=== PATIENT | male | born 1950 | race Caucasian/White ===

== ENCOUNTER 2020-03-13 09:42 | Outpatient (REF) | payer OTHER, SELFPAY ==
[2020-03-13 11:08] LABS: MANUAL DIFF FLAG NO
[2020-03-13 11:30] LABS: Basophils Absolute Auto 0.1 X10*3/uL (0.0-0.2); Basophils Percent Auto 1.2 % (0-2); Eosinophils Absolute Auto 0.4 X10*3/uL (0.0-0.4); Eosinophils Percent Auto 6.5 % (0-4); Hematocrit 37.5 % (42-52); Hemoglobin 12.5 g/dl (14.0-18.0); Imm Gran Abs Auto 0.02 X10*3/uL (0.00-0.03); Imm Gran Pct Auto 0.3 % (0.0-0.4); Lymphocytes Absolute Auto 1.6 X10*3/uL (1.2-4.9); Lymphocytes Percent Auto 23.9 % (20-40); Mean Corpuscular HGB Conc 33.3 g/dl (31.0-36.0); Mean Corpuscular Hemoglobin 29.6 pg (27.0-33.0); Mean Corpuscular Volume 88.7 fL (80-98); Mean Platelet Volume 9.3 fL (9.4-12.4); Monocytes Absolute Auto 0.5 X10*3/uL (0.1-1.2); Monocytes Percent Auto 7.7 % (2-11); Neutrophils Absolute Auto 4.1 X10*3/uL (2.0-8.3); Neutrophils Percent Auto 60.4 % (45-73); Platelet Count 222 X10*3/uL (160-400); Red Blood Count 4.23 X10*6/uL (4.60-5.80); Red Cell Distribution Width 13.1 % (11.0-16.0); White Blood Count 6.8 X10*3/uL (4.8-10.8)
[2020-03-13 12:03] LABS: Alanine Aminotransferase 19 U/L (0-40); Albumin Level 4.2 g/dL (3.5-5.0); Alkaline Phosphatase 111 U/L (39-117); Anion Gap 8 (12-20); Aspartate Amino Transferase 16 U/L (5-37); Bilirubin Total 0.6 mg/dL (0.0-1.0); Blood Urea Nitrogen 30 mg/dL (9-16); Calcium 8.9 mg/dL (8.4-10.2); Carbon Dioxide 28 mmol/L (22-29); Chloride 105 mmol/L (96-108); Cholesterol 129 mg/dL; Estimated Glomerular Filt Rate 47; Glucose Fasting 90 mg/dL (60-99); HDL Cholesterol 43 mg/dL; LDL Cholesterol Calculated 69 mg/dl; Potassium 4.4 mmol/l (3.3-5.1); Sodium 137 mmol/L (135-145); Total Protein 6.8 g/dL (6.5-8.0); Triglycerides 89 mg/dL
== END 2020-03-13 09:43 | disposition home or self-care (01) ==
LOC: HO.HMGCLDS 09:42
PROVIDERS: PCP Internal Medicine; Visit Provider Internal Medicine
DX: E78.00 Pure hypercholesterolemia, unspecified (principal); F33.42 Major depressive disorder, recurrent, in full remission; I12.9 Hypertensive chronic kidney disease with stage 1 through stage 4 chronic kidney disease, or unspecified chronic kidney disease; N18.9 Chronic kidney disease, unspecified; Z00.00 Encounter for general adult medical examination without abnormal findings
CPT/HCPCS: 36415; 80053; 80061; 85025

== ENCOUNTER 2020-08-27 09:29 | Outpatient (REF) | payer OTHER, SELFPAY ==
[2020-08-27 11:29] LABS: MANUAL DIFF FLAG NO
[2020-08-27 11:38] LABS: Basophils Absolute Auto 0.1 X10*3/uL (0.0-0.2); Eosinophils Absolute Auto 0.5 X10*3/uL (0.0-0.4); Hematocrit 38.1 % (42-52); Hemoglobin 12.7 g/dl (14.0-18.0); Imm Gran Abs Auto 0.03 X10*3/uL (0.00-0.03); Imm Gran Pct Auto 0.4 % (0.0-0.4); Lymphocytes Percent Auto 26.2 % (20-40); Mean Corpuscular HGB Conc 33.3 g/dl (31.0-36.0); Mean Corpuscular Hemoglobin 29.7 pg (27.0-33.0); Mean Corpuscular Volume 89.2 fL (80-98); Mean Platelet Volume 9.3 fL (9.4-12.4); Monocytes Absolute Auto 0.6 X10*3/uL (0.1-1.2); Monocytes Percent Auto 7.7 % (2-11); Neutrophils Absolute Auto 4.6 X10*3/uL (2.0-8.3); Neutrophils Percent Auto 58.7 % (45-73); Platelet Count 221 X10*3/uL (160-400); Red Blood Count 4.27 X10*6/uL (4.60-5.80); Red Cell Distribution Width 13.1 % (11.0-16.0); White Blood Count 7.8 X10*3/uL (4.8-10.8)
[2020-08-27 12:00] LABS: Alanine Aminotransferase 16 U/L (0-40); Albumin Level 4.3 g/dL (3.5-5.0); Alkaline Phosphatase 130 U/L (39-117); Anion Gap 11 (12-20); Aspartate Amino Transferase 17 U/L (5-37); Bilirubin Total 0.8 mg/dL (0.0-1.0); Blood Urea Nitrogen 28 mg/dL (9-16); Calcium 9.3 mg/dL (8.4-10.2); Carbon Dioxide 26 mmol/L (22-29); Chloride 106 mmol/L (96-108); Cholesterol 129 mg/dL; Estimated Glomerular Filt Rate 41; Glucose Random 86 mg/dL (60-115); HDL Cholesterol 47 mg/dL; LDL Cholesterol Calculated 60 mg/dl; Potassium 4.3 mmol/L (3.3-5.1); Sodium 139 mmol/L (135-145); Triglycerides 113 mg/dL
== END 2020-08-27 09:30 | disposition home or self-care (01) ==
LOC: HO.HMGCLDS 09:29
PROVIDERS: PCP Internal Medicine; Visit Provider Internal Medicine
DX: I12.9 Hypertensive chronic kidney disease with stage 1 through stage 4 chronic kidney disease, or unspecified chronic kidney disease (principal); E78.00 Pure hypercholesterolemia, unspecified; F33.41 Major depressive disorder, recurrent, in partial remission; J45.909 Unspecified asthma, uncomplicated; N18.9 Chronic kidney disease, unspecified; D63.1 Anemia in chronic kidney disease
CPT/HCPCS: 36415; 80053; 80061; 85025

== ENCOUNTER 2021-05-02 10:16 | Outpatient (REF) | payer MEDICARE, SELFPAY ==
[2021-05-02 11:19] LABS: Hematocrit 37.3 % (42.0-52.0); Hemoglobin 12.6 g/dl (14.0-18.0); Mean Corpuscular HGB Conc 33.8 g/dl (31.0-36.0); Mean Corpuscular Hemoglobin 29.9 pg (27.0-33.0); Mean Corpuscular Volume 88.6 fL (80.0-98.0); Mean Platelet Volume 9.4 fL (9.4-12.4); Platelet Count 238 X10*3/uL (160-400); Red Blood Count 4.21 X10*6/uL (4.60-5.80); Red Cell Distribution Width 13.7 % (11.0-16.0); White Blood Count 6.5 X10*3/uL (4.8-10.8)
[2021-05-02 11:49] LABS: Alanine Aminotransferase 18 U/L (0-40); Albumin Level 4.2 g/dL (3.5-5.0); Alkaline Phosphatase 107 U/L (39-117); Anion Gap 10 (12-20); Aspartate Amino Transferase 17 U/L (5-37); Bilirubin Total 0.6 mg/dL (0.0-1.0); Blood Urea Nitrogen 26 mg/dL (9-16); Calcium 9.6 mg/dL (8.4-10.2); Carbon Dioxide 29 mmol/L (22-29); Chloride 106 mmol/L (96-108); Estimated Glomerular Filt Rate 46; Glucose Random 96 mg/dL (60-115); Iron 71 mcg/dL (45-160); Magnesium 2.2 mg/dL (1.6-2.6); Percent Iron Saturation 22 % (15-50); Potassium 4.5 mmol/L (3.3-5.1); Sodium 140 mmol/L (135-145); Total Iron Binding Capacity 319 mcg/dL (228-428); Unsaturated Iron Binding 248 ug/dL
[2021-05-02 12:00] LABS: Uric Acid 6.5 mg/dL (3.4-7.0)
[2021-05-02 12:03] LABS: Ferritin 123 ng/mL (20-250); Vitamin D 25-OH Total 12.4 ng/mL (>30)
[2021-05-02 14:18] LABS: Creatinine Urine 110.34 mg/dL; Protein/Creatinine Ratio, Ur 0.12 (<0.2); Total Protein Urine Random 13 mg/dL (<12)
== END 2021-05-02 10:17 | disposition home or self-care (01) ==
LOC: HO.HMGCLDS 10:16
PROVIDERS: PCP Internal Medicine; Visit Provider Internal Medicine Nephrology
DX: N17.9 Acute kidney failure, unspecified (principal); D63.1 Anemia in chronic kidney disease; R80.9 Proteinuria, unspecified
CPT/HCPCS: 36415; 80053; 82306; 82728; 83540; 83735; 84156; 84550; 85027

== ENCOUNTER 2021-07-12 07:46 | Outpatient (REF) | payer MEDICARE, SELFPAY ==
--- NOTE | ~2021-07-12 | XR_ITS ---
EXAMINATION: XR SHOULDER, RIGHT CLINICAL INFORMATION: Pain COMPARISON: None TECHNIQUE: Three views of the right shoulder. FINDINGS: Visualized portions of the proximal right humerus demonstrate no fracture. Humeral head demonstrates good articulation with the glenoid fossa. There are mild to moderate hypertrophic changes of the right acromioclavicular joint. Visualized right-sided ribs and lung parenchyma are unremarkable. XR/XR shoulder RT min 2V IMPRESSION: Mild degenerative changes of the right shoulder.
== END 2021-07-12 07:47 | disposition home or self-care (01) ==
LOC: HO.HOSX 07:46
PROVIDERS: Visit Provider Physician Assistant
DX: M75.101 Unspecified rotator cuff tear or rupture of right shoulder, not specified as traumatic (principal)
CPT/HCPCS: 20610; 73030; 99202; J1040

== ENCOUNTER 2021-08-14 18:00 | Outpatient (REF) | payer MEDICARE, SELFPAY ==
--- NOTE | ~2021-08-14 | MR_ITS ---
EXAMINATION: MR SHOULDER WITHOUT CONTRAST, RIGHT CLINICAL INFORMATION: Right shoulder pain. COMPARISON: X-ray of the right shoulder 07/12/2021. TECHNIQUE: MRI of the shoulder without contrast was performed on a high-field scanner. FINDINGS: ROTATOR CUFF: Supraspinatus: Scattered foci of increased signal throughout the supraspinatus tendon compatible with tendinosis and perhaps small foci of intrasubstance partial tearing but no measurable tendon defect or tendon retraction. The muscle is normal. The remaining rotator cuff muscles and tendons are normal. BICEPS: Normal. CORACOACROMIAL ARCH: The undersurface of the acromion is curved with no subacromial spur. Zyae-sk-idahkgkn hypertrophic osteoarthritis of the acromioclavicular joint manifested by marginal osteophytes, subchondral cystic change and edema Bursa: Minimal fluid signal compatible with normal variation or mild bursitis. LABRUM/CAPSULE: Normal. GLENOHUMERAL JOINT/MARROW: Normal. MR/MR shoulder RT wo con IMPRESSION: Mild abnormality the supraspinatus compatible with tendinosis and perhaps small scattered foci of intrasubstance partial tearing but no measurable defect or tendon retraction. Trace fluid in the subacromial-subdeltoid bursa compatible with normal variation or mild bursitis. Qyel-te-bheodlpt hypertrophic osteoarthritis of the acromioclavicular joint.
== END 2021-08-14 18:01 | disposition home or self-care (01) ==
LOC: HO.MRI 18:00
PROVIDERS: Visit Provider Physician Assistant
DX: M75.101 Unspecified rotator cuff tear or rupture of right shoulder, not specified as traumatic (principal)
CPT/HCPCS: 73221

== ENCOUNTER → 2021-08-23 13:15 | Outpatient (BNVA) | payer MEDICARE, SELFPAY | PROVIDERS: PCP Internal Medicine; Visit Provider Physician Assistant | DX: M75.101 Unspecified rotator cuff tear or rupture of right shoulder, not specified as traumatic (principal) | CPT/HCPCS: 99212 ==

== ENCOUNTER 2021-10-10 09:17 | Outpatient (REF) | payer MEDICARE, SELFPAY ==
[2021-10-10 11:08] LABS: MANUAL DIFF FLAG NO
[2021-10-10 11:11] LABS: Basophils Absolute Auto 0.1 X10*3/uL (0.0-0.2); Basophils Percent Auto 0.9 % (0-2); Eosinophils Absolute Auto 0.4 X10*3/uL (0.0-0.4); Eosinophils Percent Auto 4.7 % (0-4); Hematocrit 37.2 % (42.0-52.0); Hemoglobin 12.6 g/dl (14.0-18.0); Imm Gran Abs Auto 0.04 X10*3/uL (0.00-0.03); Imm Gran Pct Auto 0.5 % (0.0-0.4); Lymphocytes Absolute Auto 1.6 X10*3/uL (1.2-4.9); Lymphocytes Percent Auto 21.2 % (20-40); Mean Corpuscular HGB Conc 33.9 g/dl (31.0-36.0); Mean Corpuscular Hemoglobin 30.1 pg (27.0-33.0); Mean Platelet Volume 9.1 fL (9.4-12.4); Monocytes Absolute Auto 0.5 X10*3/uL (0.1-1.2); Monocytes Percent Auto 6.7 % (2-11); Neutrophils Absolute Auto 4.9 x10*3/uL (2.0-8.3); Platelet Count 229 X10*3/uL (160-400); Red Blood Count 4.18 X10*6/uL (4.60-5.80); Red Cell Distribution Width 13.1 % (11.0-16.0); White Blood Count 7.4 X10*3/uL (4.8-10.8)
[2021-10-10 11:21] LABS: Alanine Aminotransferase 17 U/L (0-40); Albumin Level 4.4 g/dL (3.5-5.0); Alkaline Phosphatase 113 U/L (39-117); Anion Gap 11 (12-20); Aspartate Amino Transferase 16 U/L (5-37); Bilirubin Total 0.5 mg/dL (0.0-1.0); Blood Urea Nitrogen 29 mg/dL (9-16); Calcium 9.3 mg/dL (8.4-10.2); Carbon Dioxide 24 mmol/L (22-29); Chloride 108 mmol/L (96-108); Cholesterol 119 mg/dL; Estimated Glomerular Filt Rate 44; Glucose Random 105 mg/dL (60-115); HDL Cholesterol 40 mg/dL; LDL Cholesterol Calculated 50 mg/dl; Potassium 4.7 mmol/L (3.3-5.1); Sodium 138 mmol/L (135-145); Total Protein 7.2 g/dL (6.5-8.0); Triglycerides 148 mg/dL
[2021-10-10 11:46] LABS: Prostate Specific Antigen 0.74 ng/mL (<0.05-4.0)
== END 2021-10-10 09:18 | disposition home or self-care (01) ==
LOC: HO.HMGCLDS 09:17
PROVIDERS: Visit Provider Internal Medicine
DX: Z00.00 Encounter for general adult medical examination without abnormal findings (principal); Z12.5 Encounter for screening for malignant neoplasm of prostate; N40.0 Benign prostatic hyperplasia without lower urinary tract symptoms; I12.9 Hypertensive chronic kidney disease with stage 1 through stage 4 chronic kidney disease, or unspecified chronic kidney disease; N18.9 Chronic kidney disease, unspecified; F32.5 Major depressive disorder, single episode, in full remission
CPT/HCPCS: 36415; 80053; 80061; 84153; 85025

== ENCOUNTER 2021-10-22 13:00 | Outpatient (RCR) | payer MEDICARE, SELFPAY ==
--- NOTE | 2021-09-20 09:13 | MHC.PT.EP ---
[facility] [place] [facility] [place] [facility] [place] [facility] [address] Loco Garcia [address] [phone] F: [phone] F: [phone] F: [phone] F: [phone] Physical Therapy Plan of Care Date of Evaluation: Date of Surgery: Diagnosis: Painful Arc of R shoulder. Assessment: Pt is a 71 y/o R hand dominant male referred to PT for eval and treat of R shoulder painful arc who presents with R shoulder dysfunction resulting in decreased tolerance and ability to perform reaching a high shelf, dressing pullovers, reaching his neck and back for hygiene/ dressing and carrying objects of weight secondary to decreased R UE strength and ROM, TTP of his anterior R shoulder and pain. Pt is deemed an appropriate candidate to receive skilled PT in order to address his physical limitations to improve his functional ability. Frequency and Duration: The patient will be seen 2 x / wk x 5 wks. Short Term Goals: Initiate HEP Pt will report baseline pain at rest < 4/10; initial: 6/10. Assisted Goals: I with HEP. Pt will be able to place objects on high shelf with managed Sx; initial: 7/10 pain; 9/10 difficulty. Pt will improve R shoulder IR MMT by at least 1/2 MMT grade; initial: 4-/5 and painful. pt will be able to dress pullovers with managed Sx; initial: 7/10. Treatment Plan: Modalities to reduce pain, spasms and effusion. Manual therapy to restore motion and function. Therapeutic exercise to improve strength and flexibility. Neuromuscular re-education for posture and balance. Therapeutic activities to return to functional activities of daily living. Electronically signed by: Yakov Ureña PT. Please sign and return to therapist. Thank you for your referral.
--- NOTE | 2022-04-16 08:13 | MHC.PT.DC ---
[facility] [place] Office [place] Office [place] Office [address] Loco Garcia [address] [phone] F: [phone] F: [phone] F: [phone] F: [phone] Physical Therapy Discharge Report Diagnosis: Painful Arc of R shoulder. Date of Surgery: Date of Evaluation: 09/19/21 Date of Discharge: 11/22/21 Treatments to Date: 5 Cancellations to Date: No Shows to Date: Discharge Status: Patient Elected to Stop Discharge Summary: Pt elected to pause therapy and chart was held 30 days though Pt did not follow up with therapy. Electronically signed by: Yakov Ureña PT. Please sign and return to therapist. Thank you for your referral.
== END 2022-04-16 08:12 | disposition home or self-care (01) ==
LOC: HO.PTCHIC 13:00
PROVIDERS: Visit Provider Physician Assistant
DX: M75.101 Unspecified rotator cuff tear or rupture of right shoulder, not specified as traumatic (principal)
CPT/HCPCS: 97014; 97110; 97140; 97161

== ENCOUNTER → 2021-12-17 13:04 | Outpatient (BNVA) | payer MEDICARE, SELFPAY | PROVIDERS: PCP Internal Medicine; Visit Provider Nurse Practitioner Family | DX: G47.52 REM sleep behavior disorder (principal); R40.0 Somnolence; R26.9 Unspecified abnormalities of gait and mobility | CPT/HCPCS: 99202 ==

== ENCOUNTER → 2022-01-08 19:30 | Outpatient (REF) | payer MEDICARE, SELFPAY | LOC: HO.SL 19:30 | PROVIDERS: Visit Provider Nurse Practitioner Family | DX: G47.52 REM sleep behavior disorder (principal) | CPT/HCPCS: 95810 ==

== ENCOUNTER 2022-01-23 09:30 | Outpatient (REF) | payer MEDICARE, SELFPAY ==
--- NOTE | ~2022-01-23 | MR_ITS ---
EXAMINATION: MR BRAIN WITHOUT CONTRAST CLINICAL INFORMATION: Unspecified abnormalities of gait and mobility. COMPARISON: None available. TECHNIQUE: Multiplanar, multisequence imaging of the brain was performed without intravenous contrast. FINDINGS: There is no acute infarction, mass, hemorrhage, or extra-axial collection. The ventricles, sulci, and basilar cisterns are normal in size and configuration. A few mild nonspecific foci of T2/FLAIR hyperintensity are seen throughout the bilateral cerebral white matter. The flow voids of the major intracranial arteries appear intact. Mild degenerative changes are noted in the upper cervical spine. The bones and extracranial soft tissues are unremarkable. MR/MR head/brain wo con IMPRESSION: No acute infarct, mass lesion, intracranial hemorrhage, or evidence of hydrocephalus.
== END 2022-01-23 09:31 | disposition home or self-care (01) ==
LOC: HO.MRI 09:30
PROVIDERS: Visit Provider Nurse Practitioner Family
DX: R26.9 Unspecified abnormalities of gait and mobility (principal)
CPT/HCPCS: 70551

== ENCOUNTER 2022-04-29 09:18 | Outpatient (REF) | payer MEDICARE, SELFPAY ==
[2022-04-29 11:29] LABS: MANUAL DIFF FLAG NO
[2022-04-29 11:37] LABS: Basophils Absolute Auto 0.1 X10*3/uL (0.0-0.2); Basophils Percent Auto 1.7 % (0-2); Eosinophils Absolute Auto 0.4 X10*3/uL (0.0-0.4); Eosinophils Percent Auto 6.8 % (0-4); Hematocrit 40.4 % (42.0-52.0); Hemoglobin 13.4 g/dl (14.0-18.0); Imm Gran Abs Auto 0.03 X10*3/uL (0.00-0.03); Imm Gran Pct Auto 0.5 % (0.0-0.4); Lymphocytes Absolute Auto 1.4 X10*3/uL (1.2-4.9); Lymphocytes Percent Auto 22.2 % (20-40); Mean Corpuscular HGB Conc 33.2 g/dl (31.0-36.0); Mean Corpuscular Hemoglobin 28.8 pg (27.0-33.0); Mean Corpuscular Volume 86.9 fL (80.0-98.0); Mean Platelet Volume 9.1 fL (9.4-12.4); Monocytes Absolute Auto 0.5 X10*3/uL (0.1-1.2); Neutrophils Absolute Auto 3.9 x10*3/uL (2.0-8.3); Neutrophils Percent Auto 60.8 % (45-73); Platelet Count 226 X10*3/uL (160-400); Red Blood Count 4.65 X10*6/uL (4.60-5.80); Red Cell Distribution Width 13.3 % (11.0-16.0); White Blood Count 6.5 X10*3/uL (4.8-10.8)
[2022-04-29 12:12] LABS: Alanine Aminotransferase 15 U/L (0-40); Albumin Level 4.2 g/dL (3.5-5.0); Alkaline Phosphatase 120 U/L (39-117); Anion Gap 13 (12-20); Aspartate Amino Transferase 16 U/L (5-37); Bilirubin Total 0.7 mg/dL (0.0-1.0); Blood Urea Nitrogen 24 mg/dL (9-16); Calcium 9.4 mg/dL (8.4-10.2); Carbon Dioxide 24 mmol/L (22-29); Chloride 107 mmol/L (96-108); Estimated Glomerular Filt Rate 44; Glucose Random 107 mg/dL (60-115); Potassium 4.3 mmol/L (3.3-5.1); Sodium 140 mmol/L (135-145); Total Protein 6.8 g/dL (6.5-8.0)
== END 2022-04-29 09:19 | disposition home or self-care (01) ==
LOC: HO.HMGCLDS 09:18
PROVIDERS: PCP Internal Medicine; Visit Provider Internal Medicine
DX: E78.00 Pure hypercholesterolemia, unspecified (principal); F32.5 Major depressive disorder, single episode, in full remission; I12.9 Hypertensive chronic kidney disease with stage 1 through stage 4 chronic kidney disease, or unspecified chronic kidney disease; J45.909 Unspecified asthma, uncomplicated; N18.9 Chronic kidney disease, unspecified
CPT/HCPCS: 36415; 80053; 85025

== ENCOUNTER 2022-11-14 06:36 | Outpatient (REF) | payer MEDICARE, SELFPAY ==
[2022-11-14 11:07] LABS: MANUAL DIFF FLAG NO
[2022-11-14 11:28] LABS: Basophils Absolute Auto 0.1 X10*3/uL (0.0-0.2); Basophils Percent Auto 1.2 % (0-2); Eosinophils Absolute Auto 0.4 X10*3/uL (0.0-0.4); Eosinophils Percent Auto 5.6 % (0-4); Hematocrit 40.1 % (42.0-52.0); Hemoglobin 13.1 g/dl (14.0-18.0); Imm Gran Abs Auto 0.03 X10*3/uL (0.00-0.03); Imm Gran Pct Auto 0.4 % (0.0-0.4); Lymphocytes Absolute Auto 2.1 X10*3/uL (1.2-4.9); Lymphocytes Percent Auto 30.5 % (20-40); Mean Corpuscular HGB Conc 32.7 g/dl (31.0-36.0); Mean Corpuscular Hemoglobin 29.4 pg (27.0-33.0); Mean Corpuscular Volume 89.9 fL (80.0-98.0); Mean Platelet Volume 9.4 fL (9.4-12.4); Monocytes Absolute Auto 0.5 X10*3/uL (0.1-1.2); Monocytes Percent Auto 7.8 % (2-11); Neutrophils Absolute Auto 3.7 x10*3/uL (2.0-8.3); Neutrophils Percent Auto 54.5 % (45-73); Platelet Count 222 X10*3/uL (160-400); Red Blood Count 4.46 X10*6/uL (4.60-5.80); Red Cell Distribution Width 13.3 % (11.0-16.0); White Blood Count 6.8 X10*3/uL (4.8-10.8)
[2022-11-14 13:00] LABS: Alanine Aminotransferase 15 U/L (0-40); Albumin Level 4.2 g/dL (3.5-5.0); Alkaline Phosphatase 98 U/L (39-117); Anion Gap 11 (12-20); Aspartate Amino Transferase 17 U/L (5-37); Bilirubin Total 0.6 mg/dL (0.0-1.0); Blood Urea Nitrogen 21 mg/dL (9-16); Calcium 9.8 mg/dL (8.4-10.2); Carbon Dioxide 25 mmol/L (22-29); Chloride 108 mmol/L (96-108); Cholesterol 147 mg/dL (<200); Estimated Glomerular Filt Rate 45; Glucose Random 110 mg/dL (60-115); HDL Cholesterol 43 mg/dL (>40); LDL Cholesterol Calculated 85 mg/dL (<100); Potassium 4.4 mmol/L (3.3-5.1); Sodium 140 mmol/L (135-145); Total Protein 7.3 g/dL (6.5-8.0); Triglycerides 95 mg/dL (<150)
== END 2022-11-14 06:37 | disposition home or self-care (01) ==
LOC: HO.HMGCLDS 06:36
PROVIDERS: PCP Internal Medicine; Visit Provider Internal Medicine
DX: Z00.00 Encounter for general adult medical examination without abnormal findings (principal); I12.9 Hypertensive chronic kidney disease with stage 1 through stage 4 chronic kidney disease, or unspecified chronic kidney disease; N18.9 Chronic kidney disease, unspecified; F32.5 Major depressive disorder, single episode, in full remission; G47.52 REM sleep behavior disorder
CPT/HCPCS: 36415; 80053; 80061; 85025

== ENCOUNTER 2023-06-10 09:28 | Outpatient (REF) | payer MEDICARE, SELFPAY ==
[2023-06-10 19:12] LABS: Urine Cytology See Pathology rpt
== END 2023-06-10 09:29 | disposition home or self-care (01) ==
LOC: HO.LAB 09:28
PROVIDERS: PCP Internal Medicine; Visit Provider Nurse Practitioner Family
DX: R31.29 Other microscopic hematuria (principal)
CPT/HCPCS: 51798; 81003; 88112; 99202

== ENCOUNTER 2023-06-10 09:28 | Outpatient (AMB) | payer MEDICARE, SELFPAY ==
--- NOTE | 2023-06-10 09:34 | A.OFFVIS_ITS ---
Intake Intake Visit Reasons: BPH with LUTS Intake Note: Patient presents today for a follow-up on BPH with LUTS Meds- None Allergies to Antibiotic- No Known Allergies Blood Thinner- None Post Void Residual: 18ml Licensed Land Surveyor Required: No Accompanied by: Self / Same As Patient Allergies codeine [CODEINE] Allergy (Unknown, Verified 06/10/23 10:18) UNKNOWN Codeine Allergy (Unknown, Uncoded 06/10/23 10:18) Nausea codeine Allergy (Unknown, Uncoded 06/10/23 10:18) stomach upset seasonal Allergy (Unknown, Uncoded 06/10/23 10:18) Abdominal Pain Medication List - Last Reconciled 06/10/23 by COURTNEY Rdz-MATEO atorvastatin 40 mg PO BEDTIME fluoxetine 40 mg PO DAILY montelukast 10 mg PO DAILY nifedipine ER 30 mg PO DAILY tamsulosin 0.4 mg PO BEDTIME 30 days HPI HPI Comments History of Present Illness Details Luis is a very pleasant 72-year-old male patient of Dr. Montemayor. He has a past medical history of asthma, hypertension, and hyperlipidemia. He presents to the office today as a new patient for ongoing lower urinary tract symptoms. In discussion with the patient today he reports noting urinary frequency, nocturia, and weak urinary stream. He reports the symptoms have been present for a few years now however feels they are worsening. He otherwise denies incontinence, hematuria, dysuria, foul smelling urine, flank pain, fever, and or chills. In office urinalysis results reviewed with the patient today. Microscopic hematuria noted. PVR 18 mL. In review of patient's chart it appears PSA 10/11--0.7. Discussed at length potential causes for lower urinary tract symptoms patient is experiencing as well as microscopic hematuria. When asked he denies any previous known workplace chemical exposure and or smoking history. When asked he denies any signs or symptoms of sleep apnea. He otherwise denies any bothersome urinary issues or concerns. [facility] Medical History Asthma High cholesterol High blood pressure Social History Current occupational status: employed Current occupation: shuttle van driver/ rt hand Review of Systems Const All systems reviewed & are unremarkable except as noted in HPI and below Physical Exam Const General: cooperative, healthy appearing, comfortable, no acute distress, well developed, alert and awake Orientation/consciousness: patient oriented x3 Limitations: no limitations HEENT Head: Yes normal to inspection, Yes normocephalic and Yes atraumatic Ears: hearing grossly normal bilaterally Eyes General: appearance normal, both eyes and all related structures Neck Neck: Yes normal visual inspection and Yes trachea midline Chest Chest palpation & inspection: normal inspection of the chest Resp Effort & Inspection: normal respiratory effort and able to speak in complete sentences Cardio Rate: regular rate GI Inspection: Yes normal to inspection General: Yes no CVA tenderness Back/Spine/Pelvis Back: no CVA tenderness Skin General skin exam: no rashes or lesions noted Neuro General: patient oriented x3 Extrem General: Yes normal to inspection Psych Appearance: grossly normal and well kempt Mental Status: mental status grossly normal Speech and movement: Normal speech and movement present and Clear speech present Affect: normal affect Attitude: cooperative Thought process: Normal thought process present Thought content: Normal thought content present Insight: Fair insight present (Psych) Judgement: Fair judgement present (Psych) Office Procedures Post Void Residual Post Residual Void Post Void Residual (PVR): 18 [id number] Void Residual by ultrasound Results AMB Urinalysis, Automated UA Leukoctes 0 Susana/uL Last Edit by Tabby Hall CMA on 06/10/23 09 :50 UA Nitrite Negative Last Edit by Tabby Hall CMA on 06/10/23 09: 50 UA Urobilinogen 0.2 mg/dL Last Edit by Tabby Hall CMA on 4 09:50 UA Protein 30 mg/dL Last Edit by Tabby Hall CMA on 06/10/23 09:5 0 UA pH 6.0 Last Edit by Tabby Hall CMA on 06/10/23 09:50 UA Blood 10 Deshaun/uL Last Edit by Tabby Hall CMA on 06/10/23 09:50 UA Specific Melrose 1.015 Last Edit by Tabby Hall CMA on 09:50 UA Ketone Negative Last Edit by Tabby Hall CMA on 06/10/23 09:5 0 UA Bilirubin 0 mg/dL Last Edit by Tabby Hall CMA on 06/10/23 09: 50 UA Glucose 0 mg/dL Last Edit by Tabby Hall CMA on 06/10/23 09:50 Results Reviewed Results Reviewed: Laboratory Last Values Urine pH (Auto) 6.0 06/10/23 09:35 Specific Melrose (Auto) 1.015 06/10/23 09:35 Urine Protein (Auto) 30 mg/dL 06/10/23 09:35 Glucose (UA)(Auto) 0 mg/dL 06/10/23 09:35 Urine Ketones (Auto) Negative 06/10/23 09:35 Urine Blood (Auto) 10 Deshaun/uL 06/10/23 09:35 Urine Nitrite (Auto) Negative 06/10/23 09:35 Urine Bilirubin (Auto) 0 mg/dL 06/10/23 09:35 Urine Urobilinogen (Auto) 0.2 mg/dL 06/10/23 09:35 Leukocyte Esterase (Auto) 0 Susana/uL 06/10/23 09:35 Assessment & Plan Assessment & Plan (1) Weak urinary stream: Code(s): R39.12 - Poor urinary stream (2) Nocturia: Code(s): R35.1 - Nocturia (3) Urinary frequency: Code(s): R35.0 - Frequency of micturition Plan In office urinalysis results reviewed with the patient today; as noted above; will send for urine cytology. PVR 18 mL. Discussed at length potential causes of lower urinary tract symptoms patient is experiencing as well as microscopic hematuria. Discussed obtaining retroperitoneal ultrasound for further assessment evaluation. Will obain PSA for further assessment and evaluation. Discussed bladder triggers/irritants. Discussed further microscopic hematuria versus surveillance monitoring; risks and benefits of these treatment options were discussed at length. Discussed possible near future in office cystoscopy for further assessment evaluation. Start Flomax as discussed and prescribed. Follow-up in 2-3 months with imaging, PSA, and PVR; or sooner with any issues, concerns, and or questions. Orders: Orders AMB Urinalysis Automated Today R33.9 - Retention of urine, unspecified AMB Post Void Residual by ultrasound Today R33.9 - Retention of urine, unspecified Urine Cytology Today R31.29 - Other microscopic hematuria US retroperitoneal comp Today R35.0 - Frequency of micturition, R35.1 - Nocturia, R39.12 - Poor urinary stream Prostate Specific Antigen Today R35.0 - Frequency of micturition, R35.1 - Nocturia, R39.12 - Poor urinary stream Medications: New tamsulosin 0.4 mg PO BEDTIME 30 caps 3RF 30 days N40.1 - Benign prostatic hyperplasia with lower urinary tract symptoms, R35.1 - Nocturia Patient Instructions: The patient had an opportunity to ask questions regarding the treatment plan. All questions were answered. Physical exam, labs, and imaging were discussed and reviewed in detail. As well as risks, benefits, and discussion of treatment choices. No major barriers to understanding were identified. The patient expressed understanding and agreement with the above treatment plan. The patient was made aware they should contact our office by phone for worsening of their current condition, the appearance of new symptoms, or with any questions or concerns. Compliance is encouraged with any medications and follow up testing that is ordered. It is a privilege to be allowed the opportunity to participate in? your urological care.? Again, if you have any questions or concerns If you have any questions or concerns please do not hesitate to contact me. The office is [phone]. This note is constructed using voice recognition software. While every effort has been made to ensure accuracy info print press operator errors may have been included. Yours sincerely, ROSANGELA Rdz Coding Level of Care Code New Pt Level 4 (95412) Diagnoses Weak urinary stream R39.12 Nocturia R35.1 Urinary frequency R35.0 CPT Codes Post Residual Void - PVR CPT Code: 42243-Vmzl Void Residual by ultrasound ([id number])
== END 2023-06-10 10:11 | disposition home or self-care (01) ==
PROVIDERS: PCP Internal Medicine; Visit Provider Nurse Practitioner Family
DX: R39.12 Poor urinary stream (principal); R35.1 Nocturia; R35.0 Frequency of micturition; R33.9 Retention of urine, unspecified
CPT/HCPCS: 99204

== ENCOUNTER 2023-11-20 06:01 | Outpatient (REF) | payer MEDICARE, SELFPAY ==
[2023-11-20 10:05] LABS: MANUAL DIFF FLAG NO
[2023-11-20 10:09] LABS: Basophils Absolute Auto 0.1 X10*3/uL (0.0-0.2); Basophils Percent Auto 1.2 % (0-2); Eosinophils Absolute Auto 0.4 X10*3/uL (0.0-0.4); Eosinophils Percent Auto 5.7 % (0-4); Hematocrit 39.5 % (42.0-52.0); Hemoglobin 13.3 g/dl (14.0-18.0); Imm Gran Abs Auto 0.02 X10*3/uL (0.00-0.03); Imm Gran Pct Auto 0.3 % (0.0-0.4); Lymphocytes Absolute Auto 2.3 X10*3/uL (1.2-4.9); Lymphocytes Percent Auto 29.5 % (20-40); Mean Corpuscular HGB Conc 33.7 g/dl (31.0-36.0); Mean Corpuscular Hemoglobin 29.6 pg (27.0-33.0); Mean Platelet Volume 9.3 fL (9.4-12.4); Monocytes Absolute Auto 0.6 X10*3/uL (0.1-1.2); Monocytes Percent Auto 7.9 % (2-11); Neutrophils Absolute Auto 4.3 x10*3/uL (2.0-8.3); Neutrophils Percent Auto 55.4 % (45-73); Platelet Count 236 X10*3/uL (160-400); Red Blood Count 4.49 X10*6/uL (4.60-5.80); Red Cell Distribution Width 13.5 % (11.0-16.0); White Blood Count 7.8 X10*3/uL (4.8-10.8)
[2023-11-20 10:47] LABS: Alanine Aminotransferase 16 U/L (0-40); Albumin Level 4.3 g/dL (3.5-5.0); Alkaline Phosphatase 118 U/L (39-117); Anion Gap 8 (12-20); Aspartate Amino Transferase 16 U/L (5-37); Bilirubin Total 0.8 mg/dL (0.0-1.0); Blood Urea Nitrogen 24 mg/dL (9-16); Calcium 9.9 mg/dL (8.4-10.2); Carbon Dioxide 28 mmol/L (22-29); Chloride 107 mmol/L (96-108); Cholesterol 133 mg/dL (<200); Estimated Glomerular Filt Rate 43; Glucose Random 99 mg/dL (60-115); HDL Cholesterol 43 mg/dL (>40); LDL Cholesterol Calculated 70 mg/dL (<100); Potassium 4.2 mmol/L (3.3-5.1); Sodium 139 mmol/L (135-145); Total Protein 7.2 g/dL (6.5-8.0); Triglycerides 102 mg/dL (<150)
== END 2023-11-20 06:02 | disposition home or self-care (01) ==
LOC: HO.HMGCLDS 06:01
PROVIDERS: PCP Internal Medicine; Visit Provider Internal Medicine
DX: Z00.00 Encounter for general adult medical examination without abnormal findings (principal); I12.9 Hypertensive chronic kidney disease with stage 1 through stage 4 chronic kidney disease, or unspecified chronic kidney disease; G47.52 REM sleep behavior disorder; F32.5 Major depressive disorder, single episode, in full remission; N18.9 Chronic kidney disease, unspecified
CPT/HCPCS: 36415; 80053; 80061; 85025

== ENCOUNTER 2025-03-18 07:44 | Outpatient (REF) | payer MEDICARE, SELFPAY ==
--- OUTSIDE RECORDS SUMMARY | 2025-03-18 07:47 | XMS_ITS | Clinical Summary ---
Author Organization [facility] Address [address] [facility] [address] [place] [address] Phone Care Team Providers Care Racker Octave Board Name Role Phone Norma Montemayor MD Primary Care Provider [phone] Allergies Active Allergy Reactions Criticality Noted Date Comments Amlodipine Other (see comments) 03/19/2021 Duloxetine Hcl Other (see comments) 03/19/2021 Gabapentin Other (see comments) 03/19/2021 Medications albuterol HFA (PROVENTIL HFA;VENTOLIN HFA) 108 (90 Base) MCG/ACT inhaler Inhale 2 puffs Active atorvastatin (LIPITOR) 40 MG tablet Take 1 tablet by mouth 1 (one) time each day Active FLUoxetine (PROzac) 40 MG capsule Take 1 capsule by mouth 1 (one) time each day Active lisinopril 20 MG tablet Take 1 tablet by mouth 2 (two) times a day 04/27/2019 Active montelukast (SINGULAIR) 10 MG tablet Take 1 tablet by mouth 1 (one) time each day Active NIFEdipine CC (ADALAT CC) 30 MG 24 hr tablet Take 1 tablet by mouth 1 (one) time each day in the evening 05/17/2019 Active Sodium Hyaluronate, oral, (HYALURONIC ACID PO) Take by mouth Active Active Problems Problem Noted Date Diagnosed Date Stage 3a chronic kidney disease 03/19/2021 Essential hypertension 03/19/2021 Gastroesophageal reflux disease Dyslipidemia Family History Medical History Relation Comments Cancer Child Non- Hodgkins Ly mphoma Cancer Father Lung Dementia Mother Heart disease Mother Pacemaker Kidney disease Sibling Relation Status Comments Child Father Mother Sibling Social History Tobacco Use Types Packs/Day Years Used Date Smoking Tobacco: Never Smokeless Tobacco: Never Tobacco Cessation:Counseling Given: No Alcohol Use Standard Drinks/Week Comments No 0 (1 standard drink = 0.6 oz pur e alcohol) Sex and Gender Information Value Date Recorded Sex Assigned at Not on file Legal Sex Male 4:54 PM EST Gender Identity Not on file Sexual Orientation Not on file Last Filed Vital Signs Vital Sign Reading Time Taken Comments Blood Pressure 124/84 05/09/2021 9:49 AM EST Pulse 69 05/09/2021 9:49 AM EST Temperature - - Respiratory Rate - - Oxygen Saturation 98% 05/09/2021 9:49 AM EST Inhaled Oxygen Concentration - - Weight 82.8 kg (182 lb 9.6 oz) 05/09/2021 9:49 A M EST Height 168.9 cm (5' 6.5 ) 05/17/2019 12:00 PM ES T Body Mass Index 29.03 05/17/2019 12:00 PM EST Plan of Treatment Health Maintenance Due Date Last Done Comments Pneumococcal Vaccine: 50+ Ye ars (1 of 2 - PCV) 08/24/1970 Colorectal Cancer Screening: Annual FOBT 08/24/2000 Colorectal Cancer Screening: Colonoscopy 08/24/2000 Colorectal Cancer Screening: Sigmoidoscopy 08/24/2000 Influenza Vaccine (#1) 2024 Hepatitis B Vaccine Aged Out No longe r eligible based on patient's age to complete this topic Insurance [id number] Medicare [facility] Medicare Care Teams Racker Octave Board Relationship Specialty Start Date End Date Norma Montemayor MD [address] PCP - General 04/02/20
[2025-03-18 08:24] LABS: Alanine Aminotransferase 26 U/L (0-40); Albumin Level 4.5 g/dL (3.5-5.0); Alkaline Phosphatase 141 U/L (39-117); Anion Gap 13 (12-20); Aspartate Amino Transferase 24 U/L (5-37); Blood Urea Nitrogen 35 mg/dL (9-16); Calcium 9.5 mg/dL (8.4-10.2); Carbon Dioxide 25 mmol/L (22-29); Chloride 105 mmol/L (96-108); Cholesterol 126 mg/dL (<200); Estimated Glomerular Filt Rate 41; HDL Cholesterol 39 mg/dL (>40); Potassium 3.6 mmol/L (3.3-5.1); Sodium 139 mmol/L (135-145); Total Protein 7.6 g/dL (6.5-8.0); Triglycerides 75 mg/dL (<150)
[2025-03-18 08:53] LABS: Prostate Specific Antigen 1.98 ng/mL (<0.05-4.0); Vitamin B12 309 pg/mL (200-900)
== END 2025-03-18 07:45 | disposition home or self-care (01) ==
LOC: HO.LAB 07:44
PROVIDERS: PCP Internal Medicine; Visit Provider Internal Medicine
DX: Z00.00 Encounter for general adult medical examination without abnormal findings (principal); Z12.5 Encounter for screening for malignant neoplasm of prostate; F32.5 Major depressive disorder, single episode, in full remission; I12.9 Hypertensive chronic kidney disease with stage 1 through stage 4 chronic kidney disease, or unspecified chronic kidney disease; N18.9 Chronic kidney disease, unspecified; Z68.28 Body mass index [BMI] 28.0-28.9, adult
CPT/HCPCS: 36415; 80053; 80061; 82607; 84153